=== PATIENT | female | born 1960 | race Caucasian/White ===

== ENCOUNTER → 2016-08-14 | Outpatient (CLI) | payer OTHER ==
[2016-08-14 11:17] LABS: Anion Gap 13 mmol/L; Blood Urea Nitrogen 19 mg/dL (7-17); Calcium 9.6 mg/dL (8.4-10.2); Carbon Dioxide 27 mmol/L (22-30); Chloride 102 mmol/L (98-107); Glucose 146 mg/dL (74-99); Non-African American GFR(MDRD) >60 (>60 ml/min/1.73 sqM); Potassium 4.1 mmol/L (3.5-5.1); Sodium 142 mmol/L (137-145)
== END | disposition home or self-care (01) ==
LOC: LABWHC1 08:58
PROVIDERS: ATTEND Family Medicine
DX: Z51.81 Encounter for therapeutic drug level monitoring (principal); T50.905A Adverse effect of unspecified drugs, medicaments and biological substances, initial encounter
CPT/HCPCS: 36415; 80048; 80164

== ENCOUNTER → 2016-12-27 | Outpatient (CLI) | payer OTHER ==
[2016-12-27 09:14] LABS: Basophils % (A) 1 %; CH 32.2; CHCM 32.9; Eosinophils # (A) 0.1 k/uL (0-0.7); Eosinophils % (A) 3 %; HCT 41.9 % (34.0-46.0); HGB 13.9 gm/dL (11.4-16.0); Luc # (Auto) 0.13; Luc % (Auto) 2; Lymphocytes # (A) 2.8 k/uL (1.0-4.8); Lymphocytes % (A) 54 %; MCH 32.6 pg (25.0-35.0); MCHC 33.2 g/dL (31.0-37.0); MCV 98.3 fL (80.0-100.0); Mean Platelet Volume 8.7; Monocytes # (A) 0.5 k/uL (0-1.0); Monocytes % (A) 10 %; Neutrophils # (A) 1.6 k/uL (1.3-7.7); Neutrophils % (A) 31 %; RBC 4.26 m/uL (3.80-5.40); WBC 5.2 k/uL (3.8-10.6); WBC (Perox) 5.01
[2016-12-27 11:20] LABS: ALT 57 U/L (9-52); AST 40 U/L (14-36); Alkaline Phosphatase 76 U/L (38-126); Anion Gap 10 mmol/L; Blood Urea Nitrogen 14 mg/dL (7-17); Calcium 9.4 mg/dL (8.4-10.2); Carbon Dioxide 26 mmol/L (22-30); Chloride 105 mmol/L (98-107); Glucose 89 mg/dL (74-99); Non-African American GFR(MDRD) >60 (>60 ml/min/1.73 sqM); Potassium 4.2 mmol/L (3.5-5.1); Sodium 141 mmol/L (137-145); Total Bilirubin 0.2 mg/dL (0.2-1.3)
[2016-12-27 11:32] LABS: Manual Review Performed
[2016-12-27 12:16] LABS: Hemoglobin A1C 5.8 % (4.2-6.1)
== END | disposition home or self-care (01) ==
LOC: LABWHC1 07:44
PROVIDERS: ATTEND Psychiatry & Neurology Psychiatry
DX: F25.1 Schizoaffective disorder, depressive type (principal); T50.905A Adverse effect of unspecified drugs, medicaments and biological substances, initial encounter; R63.4 Abnormal weight loss
CPT/HCPCS: 36415; 80053; 80164; 83036; 84443; 85025

== ENCOUNTER → 2017-01-29 | Outpatient (CLI) | payer OTHER | END | disposition home or self-care (01) | LOC: LABWHC1 07:20 | PROVIDERS: ATTEND Psychiatry & Neurology Neurology | DX: G40.209 Localization-related (focal) (partial) symptomatic epilepsy and epileptic syndromes with complex partial seizures, not intractable, without status epilepticus (principal) | CPT/HCPCS: 36415; 80183 ==

== ENCOUNTER → 2017-10-01 | Outpatient (CLI) | payer OTHER ==
[2017-10-01 13:10] VITALS: BMI 31.1
== END | disposition home or self-care (01) ==
LOC: MNTWWP 10:53
PROVIDERS: ATTEND Family Medicine
DX: K90.0 Celiac disease (principal)
CPT/HCPCS: 97802

== ENCOUNTER → 2017-10-23 | Outpatient (CLI) | payer OTHER ==
[2017-10-23 11:15] LABS: ALT 45 U/L (9-52); AST 35 U/L (14-36); Albumin 3.8 g/dL (3.5-5.0); Alkaline Phosphatase 65 U/L (38-126); Anion Gap 11 mmol/L; Bilirubin, Delta <0.1 mg/dL (0.0-0.2); Blood Urea Nitrogen 17 mg/dL (7-17); C Reactive Protein <5.0 mg/L (<10.0); Carbamazepine (Tegretol) <3.0 ug/mL; Carbon Dioxide 26 mmol/L (22-30); Chloride 102 mmol/L (98-107); Creatine Kinase 29 U/L (30-135); Potassium 4.2 mmol/L (3.5-5.1); Sodium 139 mmol/L (137-145); Total Bilirubin <0.1 mg/dL (0.2-1.3); Total Protein 5.9 g/dL (6.3-8.2)
[2017-10-23 11:17] LABS: Valproic Acid (Depakene) 51.4 ug/mL
[2017-10-24 05:10] LABS: Hemoglobin A1C 6.1 % (4.0-6.0)
== END | disposition home or self-care (01) ==
LOC: LABWHC1 10:21
PROVIDERS: ATTEND Psychiatry & Neurology Psychiatry
DX: R53.1 Weakness (principal); T50.905A Adverse effect of unspecified drugs, medicaments and biological substances, initial encounter
CPT/HCPCS: 36415; 80051; 80076; 80156; 80164; 82550; 82565; 83036; 84520; 85652; 86140

== ENCOUNTER → 2017-10-25 | Outpatient (CLI) | payer OTHER ==
--- NOTE | 2017-10-25 09:33 | CT ---
EXAMINATION TYPE: CT lumbar spine wo con DATE OF EXAM: 10/25/2017 7:48 AM COMPARISON: NONE HISTORY: Bilateral lower extremity weakness CT DLP: 978 mGycm Automated exposure control for dose reduction was used. TECHNIQUE: Unenhanced CT of the lumbar spine was performed. Bone and soft tissue window settings are submitted as well as coronal and sagittal reconstructions. FINDINGS: The lumbar spine maintains normal vertebral body heights and alignment. There is no evidenc e of acute fracture of the lumbar spine. Sacroiliac joints are symmetric with minimal iliac sided scl erosis bilaterally, likely degenerative. There is a focal 5 mm calcific density in the right dorsal lateral thecal sac. This could represent s equela of prior subarachnoid hemorrhage/trauma or a small calcified meningioma. Further evaluation wi th enhanced MR is recommended. This is seen on series 4 image 16. Similarly another 2 mm punctate lef t lateral calcific density at the level of L1-L2 as seen on series 4 image 20. This appears to be int radural. L1-L2: There is a small broad-based disc bulge without significant neural foraminal narrowing or spin al canal stenosis. L2-L3: There is a broad-based disc bulge that is left eccentric without focality to indicate herniati on. This results in mild left and minimal right neural foraminal narrowing. No significant spinal can al stenosis is seen. L3-L4: There is a small broad-based disc bulge resulting in mild left and minimal right neural forami nal narrowing as this is also a left eccentric. L4-L5: There is ligamentum flavum buckling and minimal facet arthropathy as well as a broad-based dis c bulge creating mild bilateral neural foraminal narrowing and appearing to create mild spinal canal stenosis although this could be better assessed with MR. L5-S1: There is a small broad-based disc bulge without spinal canal stenosis or neural foraminal narr owing. IMPRESSION: 1. Two punctate calcific densities that appear to be intradural within the upper lumbar spinal cord. These could represent sequela of prior trauma/subarachnoid hemorrhage or small calcified meningiomas. Further evaluation with enhanced MR is recommended. 2. Multilevel mild degenerative disc disease without focality on CT to suggest disc herniation. There appears to be mild spinal canal stenosis at L4-L5 and multilevel variable degree neural foraminal na rrowing as described above. 3. No evidence of vertebral body height loss or malalignment of the lumbar spine.
== END ==
LOC: RADXRMAIN 07:17
PROVIDERS: ATTEND Physical Medicine & Rehabilitation
DX: M51.36 Other intervertebral disc degeneration, lumbar region (principal); M48.061 Spinal stenosis, lumbar region without neurogenic claudication
CPT/HCPCS: 72131

== ENCOUNTER 2018-02-05 06:36 | Day surgery (SDC) | payer OTHER ==
[2018-02-03 12:50] VITALS: BMI 27.8
[~2018-02-05 06:36] MED LIST: LACTATED RINGERS 1,000 ML IV SCH
[2018-02-05 07:21] VITALS: RESP 16; TEMP 97.8
[2018-02-05 07:44] LABS: Glucose,Whole Blood 81 mg/dL (75-99)
[2018-02-05] MEDS ORDERED: PROPOFOL 10 MG/ML 20 ML VIAL IV ONE (07:46)
[2018-02-05] MEDS ORDERED: LACTATED RINGERS 950 ML IV ONE (07:49)
--- NOTE | 2018-02-05 08:00 | P.PCN ---
Date of Procedure: 02/05/18 Procedure(s) Performed: BRIEF HISTORY: Patient is a 57-year-old, pleasant, at female, scheduled for an upper endoscopy as a part of evaluation of possible celiac disease. She was having diarrhea and recently had celiac serology done which was reported as positive. She has been on a gluten-free diet for the last 4 weeks. PROCEDURE PERFORMED: Esophagogastroduodenoscopy with biopsy PREOPERATIVE DIAGNOSIS: Positive serology for celiac disease. IV sedation per anesthesia. PROCEDURE: After informed consent was obtained, the patient was brought into the endoscopy unit. IV sedation was administered by Anesthesia under continuous monitoring. Initially the Olympus GIF-140 video endoscope was inserted into the mouth. Esophagus intubated without any difficulty. It was gradually advanced into the stomach and duodenum and carefully examined. The bulb and the second part of the duodenum appeared normal. Antral biopsies were done from the duodenum to rule out celiac disease. The scope at this time was withdrawn to the stomach, adequately insufflated with air, and upon careful examination, mucosa of the antrum had nodular gastritis and biopsies were done from this area. The, body, cardia and the fundus appeared normal. The scope was then withdrawn into the esophagus. Small sliding Hiatal hernia noted. The GE junction was located at 33 cm from the incisors. At 30 cm from the incisors there were 2 superficial ulcerations measuring 1 cm in size on opposite lea suspicious for pill-induced esophagitis. Rest of the esophagus appeared normal and the patient tolerated the procedure well. IMPRESSION: 1. Normal-appearing duodenum status post multiple biopsies to rule out celiac disease. 2. Nodular gastritis. 3. 2 superficial ulcerations in the distal esophagus suspicious for pill- induced esophagitis 4. Small hiatal hernia. RECOMMENDATIONS: The findings of this examination were discussed with the patient as well as a family. She was advised to follow with the biopsy results and continue on Prilosec 20 mg twice daily and follow antireflux measures. She will continue on a strict gluten-free diet. She'll be seen in office in 3-4 weeks.
[2018-02-05 08:38] VITALS: BP 167/84; PULSE 76
== END 2018-02-05 08:58 | disposition home or self-care (01) ==
LOC: ORWHC2ENDO 06:36
PROVIDERS: ATTEND Internal Medicine Gastroenterology
DX: K29.50 Unspecified chronic gastritis without bleeding (principal); K22.10 Ulcer of esophagus without bleeding; K44.9 Diaphragmatic hernia without obstruction or gangrene; R76.8 Other specified abnormal immunological findings in serum; R19.7 Diarrhea, unspecified; E11.9 Type 2 diabetes mellitus without complications; E07.9 Disorder of thyroid, unspecified; F03.90 Unspecified dementia, unspecified severity, without behavioral disturbance, psychotic disturbance, mood disturbance, and anxiety; H91.90 Unspecified hearing loss, unspecified ear; J44.9 Chronic obstructive pulmonary disease, unspecified; R56.9 Unspecified convulsions; Z79.899 Other long term (current) drug therapy; Z79.84 Long term (current) use of oral hypoglycemic drugs; Z79.1 Long term (current) use of non-steroidal anti-inflammatories (NSAID); Z79.890 Hormone replacement therapy; Z88.1 Allergy status to other antibiotic agents; Z88.0 Allergy status to penicillin; Z87.891 Personal history of nicotine dependence
CPT/HCPCS: 88305; 88312; 43239; J2704

== ENCOUNTER → 2018-03-28 | Outpatient (CLI) | payer OTHER ==
--- NOTE | 2018-03-28 15:58 | US ---
EXAMINATION TYPE: US kidneys/renal and bladder DATE OF EXAM: 03/28/2018 COMPARISON: 11/17/2015 CLINICAL HISTORY: R80.9 Proteinuria. EXAM MEASUREMENTS: Right Kidney: 10.1 x 4.9 x 4.6 cm Left Kidney: 11.3 x 4.7 x 5.7 cm Right Kidney: No hydronephrosis or masses seen, inferior pole obscured by bowel gas Left Kidney: No hydronephrosis or masses seen . Column of Lázaro is likely present. Bladder: not well visualized, not fully distended, patient felt full IMPRESSION: 1. Normal renal ultrasound
== END | disposition home or self-care (01) ==
LOC: RADUSWWP 15:01
PROVIDERS: ATTEND Family Medicine
DX: R80.9 Proteinuria, unspecified (principal)
CPT/HCPCS: 76770

== ENCOUNTER → 2018-05-13 | Outpatient (CLI) | payer OTHER ==
--- NOTE | 2018-05-14 11:08 | MM ---
Reason for exam: screening (asymptomatic). Last mammogram was performed 1 year ago. History: Patient is postmenopausal. Family history of breast cancer in maternal grandmother. Physical Findings: A clinical breast exam by your physician is recommended on an annual basis and results should be correlated with mammographic findings. MG Screening Mammo w CAD Bilateral CC and MLO view(s) were taken. Prior study comparison: May 09, 2017, bilateral MG screening mammo w CAD. March 14, 2016, bilateral MG screening mammo w CAD. There are scattered fibroglandular densities. Numerous benign bilateral oil cysts. New nodularity left breast and new regional calcifications as well. ASSESSMENT: Incomplete: need additional imaging evaluation, BI-RAD 0 RECOMMENDATION: Special view mammogram of the left breast. If lesion persists on supplemental views, image directed ultrasound is recommended. [facility] will attempt to contact patient to return for supplemental views and ultrasound if indicated.
== END | disposition home or self-care (01) ==
LOC: RADMAMWWP 06:56 → EEVIPCON 07:00
PROVIDERS: ATTEND Family Medicine
DX: Z12.31 Encounter for screening mammogram for malignant neoplasm of breast (principal)
CPT/HCPCS: 77067

== ENCOUNTER → 2018-06-11 | Outpatient (CLI) | payer OTHER ==
--- NOTE | 2018-06-12 10:47 | MM ---
Reason for exam: additional evaluation requested from abnormal screening. Last mammogram was performed 1 month ago. History: Patient is postmenopausal. Family history of breast cancer in maternal grandmother. Indicated problem(s): other indicated problem in the left breast. Physical Findings: Patient refused breast exam MG Work Up Mamm w CAD LT LM and LM with magnification view(s) were taken of the left breast. Prior study comparison: May 13, 2018, bilateral MG screening mammo w CAD. May 09, 2017, bilateral MG screening mammo w CAD. The breast tissue is heterogeneously dense. This may lower the sensitivity of mammography. There are benign-appearing diffuse round coarse sphraical left breast calcifications. No suspicious clusters of calcifications. ASSESSMENT: Incomplete: need additional imaging evaluation, BI-RAD 0 RECOMMENDATION: Ultrasound of the left breast.
--- NOTE | 2018-06-12 10:58 | USB ---
History: Patient is postmenopausal. Family history of breast cancer in maternal grandmother. US Breast Workup LT Patient scanned in her wheelchair. Left complete breast ultrasound includes all four quadrants, the retroareolar region and axilla. Finding demonstrates a 4 x 4 x 4 mm oval mixed hypoechoic lesion at 3o'clock and a 4 x 5 x 5 mm oval solid hypoechoic lesion at 3 o'clock both correlate with the mammographic. findings. These results were verbally communicated with the patient and result sheet given to the patient on 06/11/18. ASSESSMENT: Suspicious, BI-RAD 4 RECOMMENDATION: Surgical consultation and ultrasound core biopsy of the left breast. Ultrasound core of 2 sites. Pt has an appointment with Dr. Hurtado on 06/12/18 at 0830 to discuss plan of care.
== END | disposition home or self-care (01) ==
LOC: RADMAMWWP 08:43
PROVIDERS: ATTEND Family Medicine
DX: R92.8 Other abnormal and inconclusive findings on diagnostic imaging of breast (principal)
CPT/HCPCS: 77065

== ENCOUNTER → 2018-06-26 | Day surgery (SDC) | payer OTHER ==
[2018-06-26 11:59] VITALS: TEMP 97.6; BMI 22.8
[2018-06-26 14:11] VITALS: BP 134/69; PULSE 79
--- NOTE | 2018-06-26 16:13 | USB ---
EXAMINATION TYPE: US biopsy breast VAD LT DATE OF EXAM: 06/26/2018 CLINICAL HISTORY: N63.20 lump in left breast. TECHNIQUE: Ultrasound guided core biopsy of left breast. COMPARISON: NONE FINDINGS: The procedure of ultrasound guided core biopsy was explained to the patient's guardian, her brother. An informed consent was then obtained. All questions were answered. Timeout was performed. The patient was placed in supine positioning for imaging and for the procedure. The overlying skin w as prepped and draped in usual sterile fashion. 1% Lidocaine buffered with bicarbonate was used as a nesthetic into the skin and subcutaneous tissue up to area of concern in the left breast. A small sk in sara was made with surgical scalpel. Under ultrasound guidance, a 12-gauge vacuum assisted biopsy gun device was used to obtain 6 core miki ples. Following this, a biopsy clip was left in lesion. Utilizing a separate set up and utilizing the same entrance site the second area was anesthetized wit h 1% lidocaine with sodium bicarbonate. Under ultrasound guidance multiple core samples were obtained . Following this a biopsy clip was placed at the biopsy site. The patient tolerated the procedure well without any immediate complication. Post procedure mammogram was ordered by the physician in performed. 2 clips are present within the left breast. Discharge instructions and been discussed with the patient guarding. Patient was released in stable c ondition having tolerated procedure well IMPRESSION: 1. Successful ultrasound-guided core biopsy 2 locations left breast. Recommendations: 1. Recommendations are pending pathology results.
== END | disposition home or self-care (01) ==
LOC: RADUSWWP 11:29
PROVIDERS: ATTEND Family Medicine
DX: N63.20 Unspecified lump in the left breast, unspecified quadrant (principal)
CPT/HCPCS: 88305; 77065; 19083; 19084; A4648

== ENCOUNTER → 2018-12-18 | Outpatient (CLI) | payer OTHER ==
[2018-12-18 12:33] LABS: ALT 105 U/L (9-52); AST 95 U/L (14-36); African American GFR (CKD) >90 (>60 ml/min/1.73 sqM); Albumin/Globulin Ratio 1.5; Alkaline Phosphatase 56 U/L (38-126); Anion Gap 8 mmol/L; Blood Urea Nitrogen 17 mg/dL (7-17); Calcium 9.6 mg/dL (8.4-10.2); Carbon Dioxide 24 mmol/L (22-30); Chloride 108 mmol/L (98-107); Cholesterol 152 mg/dL (<200); Creatine Kinase 61 U/L (30-135); Globulin 2.6 g/dL; Glucose 76 mg/dL (74-99); HDL Cholesterol 56 mg/dL (40-60); LDL Cholesterol,Calculated 75 mg/dL (0-99); Magnesium 1.7 mg/dL (1.6-2.3); Phosphorus 4.2 mg/dL (2.5-4.5); Sodium 140 mmol/L (137-145); Total Bilirubin 1.3 mg/dL (0.2-1.3); Total Protein 6.6 g/dL (6.3-8.2); Triglycerides 105 mg/dL (<150); Uric Acid 2.8 mg/dL (3.7-7.4)
[2018-12-18 12:54] LABS: Basophils % (A) 0 %; Eosinophils # (A) 0.1 k/uL (0-0.7); Eosinophils % (A) 1 %; HCT 44.3 % (34.0-46.0); HGB 14.7 gm/dL (11.4-16.0); Lymphocytes # (A) 3.2 k/uL (1.0-4.8); Lymphocytes % (A) 56 %; MCH 33.6 pg (25.0-35.0); MCHC 33.2 g/dL (31.0-37.0); MCV 100.9 fL (80.0-100.0); Mean Platelet Volume 9.9; Monocytes # (A) 0.5 k/uL (0-1.0); Monocytes % (A) 9 %; Neutrophils # (A) 1.8 k/uL (1.3-7.7); Neutrophils % (A) 33 %; Platelet Count 135 k/uL (150-450); RBC 4.39 m/uL (3.80-5.40); RDW 13.2 % (11.5-15.5); WBC 5.7 k/uL (3.8-10.6)
[2018-12-18 18:25] LABS: Iron Saturation 57.03 (12.00-45.00)
[2018-12-18 18:46] LABS: Vitamin D 25 Hydroxy 40.7 ng/mL (30.0-100.0)
== END | disposition home or self-care (01) ==
LOC: LABWHC1 10:55
PROVIDERS: ATTEND Psychiatry & Neurology Psychiatry
DX: D64.9 Anemia, unspecified (principal); M10.9 Gout, unspecified; E55.9 Vitamin D deficiency, unspecified; R80.9 Proteinuria, unspecified; Z79.899 Other long term (current) drug therapy; E78.5 Hyperlipidemia, unspecified; F20.9 Schizophrenia, unspecified
CPT/HCPCS: 36415; 80053; 80061; 80164; 80183; 82306; 82550; 82728; 83540; 83550; 83735; 83970; 84100; 84550; 85025

== ENCOUNTER → 2018-12-24 | Outpatient (CLI) | payer OTHER ==
[2018-12-24 20:35] LABS: African American GFR (CKD) 125.4 (60.0-200.0); Albumin 3.4 g/dL (3.80-4.90); Anion Gap 10.4 mmol/L (4.00-12.00); Calcium 8.8 mg/dL (8.7-10.3); Carbon Dioxide 24.6 mmol/L (21.6-31.8); Globulin 1.7 g/dL (1.6-3.3); Non-African American GFR(CKD) 108.2 (60.0-200.0); Potassium 3.9 mmol/L (3.5-5.5); Total Bilirubin 0.2 mg/dL (0.3-1.2); Total Protein 5.1 g/dL (6.2-8.2)
== END | disposition home or self-care (01) ==
LOC: LABWHC1 14:03
PROVIDERS: ATTEND Family Medicine
DX: E87.6 Hypokalemia (principal)
CPT/HCPCS: 36415; 80053

== ENCOUNTER → 2019-01-15 | Outpatient (CLI) | payer OTHER ==
--- NOTE | 2019-01-15 10:28 | USB ---
Reason for exam: follow-up at short interval from prior study. History: Patient is postmenopausal. Family history of breast cancer in maternal grandmother. Benign US biopsy breast VAD LT of the left breast, June 26, 2018. Benign US biopsy breast add'l VAD LT of the left breast, June 26, 2018. Physical Findings: Nurse did not find any significant physical abnormalities on exam. US Breast Limited LT Left limited breast ultrasound including focal area of concern, retroareolar and axilla demonstrates a 0.5 x 0.5 x 0.4cm solid lesion at 3 o'clock previously biopsied and a 0.4 x 0.3 x 0.5cm solid lesion at 3 o'clock previously biopsied. These results were verbally communicated with the patient and result sheet given to the patient on 01/15/19. ASSESSMENT: Probably benign, BI-RAD 3 RECOMMENDATION: Follow-up diagnostic mammogram of both breasts in 6 months. Ultrasound of the left breast in 6 months. Back on schedule. Manage patient on a clinical basis.
== END | disposition home or self-care (01) ==
LOC: RADUSWWP 09:38
PROVIDERS: ATTEND Family Medicine
DX: R92.8 Other abnormal and inconclusive findings on diagnostic imaging of breast (principal)

== ENCOUNTER → 2019-03-26 | Outpatient (CLI) | payer OTHER ==
[2019-03-26 11:34] LABS: Basophils # (A) 0.1 k/uL (0-0.2); Basophils % (A) 1 %; Eosinophils # (A) 0.1 k/uL (0-0.7); Eosinophils % (A) 1 %; HGB 15.6 gm/dL (11.4-16.0); Lymphocytes # (A) 1.8 k/uL (1.0-4.8); Lymphocytes % (A) 38 %; MCH 33.4 pg (25.0-35.0); MCHC 32.4 g/dL (31.0-37.0); MCV 103.2 fL (80.0-100.0); Macrocytosis Slight; Monocytes # (A) 0.6 k/uL (0-1.0); Monocytes % (A) 12 %; Neutrophils # (A) 2.1 k/uL (1.3-7.7); Neutrophils % (A) 45 %; Platelet Count 281 k/uL (150-450); RBC 4.66 m/uL (3.80-5.40); RDW 12.3 % (11.5-15.5); WBC 4.7 k/uL (3.8-10.6)
[2019-03-26 18:06] LABS: African American GFR (CKD) 134.9 (60.0-200.0); Albumin 3.9 g/dL (3.80-4.90); Albumin/Globulin Ratio 1.95 (1.60-3.17); Anion Gap 12.2 mmol/L (4.00-12.00); Calcium 8.4 mg/dL (8.7-10.3); Carbon Dioxide 25.8 mmol/L (21.6-31.8); Chol/HDL Ratio 4.85; Non-African American GFR(CKD) 116.4 (60.0-200.0); Potassium 4.6 mmol/L (3.5-5.5); Total Bilirubin 0.2 mg/dL (0.2-1.2); Total Protein 5.9 g/dL (6.2-8.2)
== END | disposition home or self-care (01) ==
LOC: LABWHC1 09:41
PROVIDERS: ATTEND Internal Medicine Gastroenterology
DX: E78.5 Hyperlipidemia, unspecified (principal); R94.5 Abnormal results of liver function studies; R74.8 Abnormal levels of other serum enzymes
CPT/HCPCS: 36415; 80053; 80061; 82550; 85025

== ENCOUNTER → 2019-06-23 | Outpatient (CLI) | payer OTHER ==
[2019-06-23 07:40] LABS: Basophils % (A) 1 %; Eosinophils # (A) 0.1 k/uL (0-0.7); Eosinophils % (A) 2 %; HCT 41.5 % (34.0-46.0); HGB 13.2 gm/dL (11.4-16.0); Lymphocytes # (A) 1.8 k/uL (1.0-4.8); Lymphocytes % (A) 44 %; MCH 32.6 pg (25.0-35.0); MCHC 31.7 g/dL (31.0-37.0); MCV 102.9 fL (80.0-100.0); Macrocytosis Slight; Mean Platelet Volume 8.2; Monocytes # (A) 0.3 k/uL (0-1.0); Monocytes % (A) 7 %; Neutrophils # (A) 1.8 k/uL (1.3-7.7); Neutrophils % (A) 45 %; Platelet Count 197 k/uL (150-450); RBC 4.04 m/uL (3.80-5.40); RDW 12.9 % (11.5-15.5)
[2019-06-23 07:42] LABS: Appearance,Urine Clear (Clear); Bilirubin,Urine Negative (Negative); Blood,Urine Negative (Negative); Color,Urine Yellow; Glucose,Urine (UA) Negative (Negative); Ketones,Urine Negative (Negative); Leukocyte Esterase,Urine Trace (Negative); Mucus,Urine Rare /hpf; Nitrite,Urine Negative (Negative); Protein,Urine Negative (Negative); RBC,Urine <1 /hpf (0-5); Specific Gravity,Urine 1.015 (1.001-1.035); Squamous Epithelial Cell,Urine 1 /hpf (0-4); Urobilinogen,Urine <2.0 mg/dL (<2.0); WBC,Urine 2 /hpf (0-5)
[2019-06-23 18:07] LABS: Urine Creatinine 44.9 mg/dL
[2019-06-23 18:18] LABS: % Iron Saturation 41.26 (12.00-45.00); African American GFR (CKD) 134.9 (60.0-200.0); Albumin 3.5 g/dL (3.80-4.90); Albumin/Globulin Ratio 2.5 (1.60-3.17); Anion Gap 8.6 mmol/L (4.00-12.00); Carbon Dioxide 29.4 mmol/L (21.6-31.8); Globulin 1.4 g/dL (1.6-3.3); Magnesium 1.5 mg/dL (1.5-2.4); Non-African American GFR(CKD) 116.4 (60.0-200.0); Phosphorus 4.1 mg/dL (2.4-5.1); Potassium 4.2 mmol/L (3.5-5.5); Total Bilirubin 0.1 mg/dL (0.3-1.2); Total Protein 4.9 g/dL (6.2-8.2)
[2019-06-23 18:21] LABS: Uric Acid 2.7 mg/dL (2.9-7.7)
[2019-06-23 18:30] LABS: Ferritin 47.3 ng/mL (10.0-291.0)
== END | disposition home or self-care (01) ==
LOC: LABWHC1 06:40
PROVIDERS: ATTEND Internal Medicine
DX: N25.81 Secondary hyperparathyroidism of renal origin (principal); D64.9 Anemia, unspecified; E55.9 Vitamin D deficiency, unspecified; M10.9 Gout, unspecified; R80.9 Proteinuria, unspecified
CPT/HCPCS: 36415; 80053; 81001; 82043; 82306; 82570; 82728; 83540; 83550; 83735; 83970; 84100; 84550; 85025

== ENCOUNTER → 2019-08-05 | Outpatient (CLI) | payer OTHER ==
--- NOTE | 2019-08-05 10:06 | MM ---
Reason for exam: additional evaluation requested from prior study. Last mammogram was performed 1 year and 1 month ago. History: Patient is postmenopausal. Family history of breast cancer in maternal grandmother at age 62. Benign US biopsy breast VAD LT of the left breast, June 26, 2018. Benign US biopsy breast add'l VAD LT of the left breast, June 26, 2018. Physical Findings: Nurse did not find any significant physical abnormalities on exam. MG Diagnostic Mammo w CAD EVA Bilateral CC and MLO view(s) were taken. Prior study comparison: June 26, 2018, left breast MG diagnostic mammo LT wo CAD. June 11, 2018, left breast MG work up mamm w CAD LT. The breast tissue is heterogeneously dense. This may lower the sensitivity of mammography. Benign appearing bilateral calcifications and left biopsy marker. Left cardiac device makes visualization of the entire left axilla difficult. These results were verbally communicated with the patient and result sheet given to the patient on 08/05/19. ASSESSMENT: Benign, BI-RAD 2 RECOMMENDATION: Routine screening mammogram of both breasts in 1 year.
== END | disposition home or self-care (01) ==
LOC: RADMAMWWP 08:48
PROVIDERS: ATTEND Family Medicine
DX: R92.8 Other abnormal and inconclusive findings on diagnostic imaging of breast (principal)
CPT/HCPCS: 77066

== ENCOUNTER 2020-07-13 08:02 | Day surgery (SDC) | payer OTHER ==
[~2020-07-13 08:02] MED LIST changes: +LIDOCAINE 1% (10MG/ML) FOR IV START INTRADERMA PRN
[2020-07-13 08:38] LABS: Glucose,Whole Blood 95 mg/dL (75-99)
[2020-07-13 08:59] VITALS: TEMP 98.8
[2020-07-13] MEDS ORDERED: PROPOFOL 10 MG/ML 20 ML VIAL IV ONE (09:15)
--- NOTE | 2020-07-13 09:28 | P.PCN ---
Date of Procedure: 07/13/20 Procedure(s) Performed: BRIEF HISTORY: Patient is a 59-year-old pleasant white female scheduled for an elective colonoscopy as a part of evaluation of prior history of colon polyps. Last colonoscopy was 5 years ago. PROCEDURE PERFORMED: Colonoscopy with snare polypectomy. PREOPERATIVE DIAGNOSIS: History of colon polyps. IV sedation per Anesthesia. PROCEDURE: After informed consent was obtained, the patient, was brought into the endoscopy unit. IV sedation was administered by Anesthesia under continuous monitoring. Digital rectal examination was normal. Initially the Olympus CF-160 flexible video colonoscope was then inserted in the rectum, gradually advanced into the cecum without any difficulty. Careful examination was performed as the scope was gradually being withdrawn. Ileocecal valve and the appendiceal orifice were visualized and appeared normal. Prep was excellent. Mucosa of the cecum, appeared normal. In the ascending colon there was a 5 mm sessile polyp removed by snare polypectomy. Rest of the ascending colon, transverse colon, descending colon, sigmoid colon, and rectum appeared normal. Retroflexion was performed in the rectum and no lesions were seen. The patient tolerated the procedure well. IMPRESSION: 5 mm sessile ascending colon polyp serous posterior polypectomy Rest of the colon appeared normal. RECOMMENDATIONS: Findings of this examination were discussed with the patient as well as a family. She was advised to follow with the biopsy results. If the biopsy shows an adenoma she can have a repeat colonoscopy in 5 years.
[2020-07-13 09:59] VITALS: BP 160/79; PULSE 80; RESP 18
== END 2020-07-13 10:15 | disposition home or self-care (01) ==
LOC: ORWHC2ENDO 08:02
PROVIDERS: ATTEND Internal Medicine Gastroenterology
DX: Z12.11 Encounter for screening for malignant neoplasm of colon (principal); D12.2 Benign neoplasm of ascending colon; Z86.010 Personal history of colon polyps; I10 Essential (primary) hypertension; E78.5 Hyperlipidemia, unspecified; J44.9 Chronic obstructive pulmonary disease, unspecified; M10.9 Gout, unspecified; E07.9 Disorder of thyroid, unspecified; G20 Parkinson's disease; M06.9 Rheumatoid arthritis, unspecified; F03.90 Unspecified dementia, unspecified severity, without behavioral disturbance, psychotic disturbance, mood disturbance, and anxiety; Z88.0 Allergy status to penicillin; Z88.1 Allergy status to other antibiotic agents; Z88.8 Allergy status to other drugs, medicaments and biological substances; Z79.890 Hormone replacement therapy; Z79.899 Other long term (current) drug therapy; Z90.49 Acquired absence of other specified parts of digestive tract; Z98.890 Other specified postprocedural states
CPT/HCPCS: 88305; 45385; J2704

== ENCOUNTER → 2020-09-13 | Outpatient (CLI) | payer OTHER ==
--- NOTE | 2020-09-14 09:41 | MM ---
Reason for exam: screening (asymptomatic). Last mammogram was performed 1 year and 1 month ago. History: Patient is postmenopausal and history of other cancer. Family history of breast cancer in maternal grandmother at age 62. Benign US biopsy breast VAD LT of the left breast, June 26, 2018. Benign US biopsy breast add'l VAD LT of the left breast, June 26, 2018. Physical Findings: A clinical breast exam by your physician is recommended on an annual basis and results should be correlated with mammographic findings. MG Screening Mammo w CAD Bilateral CC and MLO view(s) were taken. Prior study comparison: August 05, 2019, bilateral MG diagnostic mammo w CAD EVA. June 26, 2018, left breast MG diagnostic mammo LT wo CAD. The breast tissue is heterogeneously dense. This may lower the sensitivity of mammography. There are benign appearing round vascular calcifications bilaterally. Previous mammotome biopsy in the left breast x 2. There is no discrete abnormality. ASSESSMENT: Benign, BI-RAD 2 RECOMMENDATION: Routine screening mammogram of both breasts in 1 year.
== END | disposition home or self-care (01) ==
LOC: RADMAMWWP 07:15
PROVIDERS: ATTEND Family Medicine
DX: Z12.31 Encounter for screening mammogram for malignant neoplasm of breast (principal)
CPT/HCPCS: 77067

== ENCOUNTER 2020-10-06 09:48 | Observation (INO) | payer OTHER ==
--- NOTE | 2020-10-06 10:25 | ED ---
Upper Extremity HPI - General Source: patient Mode of arrival: ambulatory Limitations: no limitations <Shila Caba - Last Filed: 10/06/20 13:29> <Purnima Lin - Last Filed: 10/15/20 16:56> - General Chief Complaint: Extremity Injury, Upper Stated Complaint: Broken L Arm Time Seen by Provider: 10/06/20 10:05 - History of Present Illness Initial Comments: Patient is a 59-year-old female with history of Parkinson's, hard of hearing, presenting to the emergency department after a fall yesterday. is here with her and providing history. states that she was using her walker, transitioning from the dining room to the living room which turned into carpet when she fell forward, landing mostly on her left upper arm. She did not hit her head. The states she seemed to be doing pretty well so she did not get evaluated yesterday. Today he noticed that she wasn't using her left arm and went and got x-rays, x-ray showed a fractured humerus and they recommended her coming into the ER for further evaluation. She denies pain anywhere else. She denies hitting her head. She did take some Tylenol this morning, her pain seems to be controlled. There are no further complaints at this time. (Shila Caba) - Related Data Home Medications Medication Instructions Recorded Confirmed Baclofen 10 mg PO AC-BID 08/12/15 10/06/20 Carbidopa-Levodopa 25-100 mg 0.5 tab PO DAILY 08/12/15 10/06/20 [Sinemet 25-100 mg] Erythromycin Ophth Oint [Romycin 1 applic BOTH EYES Q3H 08/12/15 10/06/20 Ophth Oint] Fluticasone Nasal [place] [Flonase 1 spray EA NOSTRIL BID 08/12/15 10/06/20 Nasal [place]] Folic Acid 1 mg PO DAILY 08/12/15 10/06/20 Ibuprofen [Motrin] 800 mg PO TID PRN 08/12/15 10/06/20 Levothyroxine Sodium [Levoxyl] 112 mcg PO DAILY 08/12/15 10/06/20 Loratadine [Claritin] 10 mg PO DAILY 08/12/15 10/06/20 Meclizine [Antivert] 12.5 mg PO BID 08/12/15 10/06/20 OXcarbazepine [Trileptal] 300 mg PO BID 08/12/15 10/06/20 Omeprazole [PriLOSEC] 20 mg PO BID 08/12/15 10/06/20 amantadine HCL [Symmetrel] 100 mg PO BID 08/12/15 10/06/20 traZODone HCL [Desyrel] 200 mg PO HS 08/12/15 10/06/20 Dorzolamide HCl [Trusopt 2%] 1 drop BOTH EYES BID 02/03/18 10/06/20 Calcium Carbonate/Vitamin D3 2 tab PO DAILY 06/18/18 10/06/20 [Calcium 600-Vit D3 400 Caplet] Latanoprost/Pf [Latanoprost 0.005% 1 drop BOTH EYES HS 06/18/18 10/06/20 Eye Drop] Mirabegron [Myrbetriq] 50 mg PO DAILY 06/18/18 10/06/20 Acetaminophen [Tylenol] 500 mg PO BID PRN 07/11/20 10/06/20 Donepezil [Aricept] 10 mg PO HS 07/11/20 10/06/20 LORazepam [Ativan] 0.5 mg PO BID 07/11/20 10/06/20 Magnesium Oxide [Mag-Oxide] 400 mg PO BID 07/11/20 10/06/20 Vortioxetine Hydrobromide 20 mg PO DAILY 07/11/20 10/06/20 [Trintellix] busPIRone HCL 15 mg PO BID@0900,1400 07/11/20 10/06/20 Albuterol Sulfate [Proair Hfa] 2 puff INHALATION RT-Q4H PRN 10/06/20 10/06/20 Brimonidine Tartrate [Alphagan P 1 drop BOTH EYES BID 10/06/20 10/06/20 0.2% Ophth Soln] Divalproex ER [Depakote ER] 1,500 mg PO HS 10/06/20 10/06/20 Docusate [Colace] 100 mg PO BID PRN 10/06/20 10/06/20 Loperamide [Imodium] 2 mg PO DAILY PRN 10/06/20 10/06/20 Lurasidone [Latuda] 80 mg PO PC-SUPPER 10/06/20 10/06/20 OXcarbazepine [Trileptal] 150 mg PO BID 10/06/20 10/06/20 Refresh Liquigel 1% Liquid Gel 1 drop BOTH EYES Q3H 10/06/20 10/06/20 Drops Tofacitinib Citrate [Xeljanz Xr] 11 mg PO DAILY 10/06/20 10/06/20 busPIRone HCL 30 mg PO HS 10/06/20 10/06/20 Previous Rx's Medication Instructions Recorded Sulfamethox-Tmp 800-160Mg [Bactrim 1 tab PO Q12HR 3 Days #6 tab 10/07/20 DS 800-160 mg] Allergies Allergy/AdvReac Type Severity Reaction Status Date / Time amoxicillin trihydrate Allergy Severe Anaphylaxis Verified 10/06/20 12:35 [From Augmentin] erythromycin base Allergy Severe Anaphylaxis Verified 10/06/20 12:35 Macrolide Antibiotics Allergy Severe Anaphylaxis Verified 10/06/20 12:35 neomycin Allergy Severe Anaphylaxis Verified 10/06/20 12:35 potassium clavulanate Allergy Severe Anaphylaxis Verified 10/06/20 12:35 [From Augmentin] prednisone Allergy INCREASED Verified 10/06/20 12:35 EYE PRESSURE Review of Systems ROS Other: All systems not noted in ROS Statement are negative. <Shila Caba - Last Filed: 10/06/20 13:29> ROS Other: All systems not noted in ROS Statement are negative. <Purnima Lin - Last Filed: 10/15/20 16:56> ROS Statement: Those systems with pertinent positive or pertinent negative responses have been documented in the HPI. Past Medical History Past Medical History: COPD, Dementia, Eye Disorder, GERD/Reflux, Hearing Disorder / Deafness, Hyperlipidemia, Rheumatoid Arthritis (RA), Seizure Disor tiffany, Thyroid Disorder Additional Past Medical History / Comment(s): O2 4L @ NIGHT. PARKISON/DEMENTIA. 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 VERY [place]. WILL FOLLOW SIMPLE INSTRUCTIONS. History of Any Multi-Drug Resistant Organisms: None Reported Past Surgical History: Cholecystectomy, Orthopedic Surgery Additional Past Surgical History / Comment(s): leonor. Ankle FX repair; Benign brain Blastoma; Deep Brain Stimulator implant, leg fx with repair/kenny placement 2012 Past Anesthesia/Blood Transfusion Reactions: No Reported Reaction, Motion Sickness Past Psychological History: Bipolar, Depression, Schizophrenia Smoking Status: Former smoker Past Alcohol Use History: None Reported Past Drug Use History: None Reported - Past Family History Mother Family Medical History: No Reported History, Coronary Artery Disease (CAD) <Shila Caba - Last Filed: 10/06/20 13:29> General Exam Limitations: no limitations <Shila Caba - Last Filed: 10/06/20 13:29> - General Exam Comments Initial Comments: GENERAL: Patient is well-developed and well-nourished. Patient is nontoxic and in no acute distress, [place]. HEAD: Atraumatic, normocephalic. No hematomas, no signs of basal skull fracture. EYES: Pupils equal round and reactive to light, extraocular movements intact, sclera anicteric, conjunctiva are normal. Eyelids were unremarkable. ENT: TMs normal, nares patent, oropharynx clear without exudates. Moist mucous membranes. NECK: Normal range of motion, supple without lymphadenopathy or JVD. No midline tenderness. LUNGS: Unlabored respirations. Breath sounds clear to auscultation bilaterally and equal. No wheezes rales or rhonchi. HEART: Regular rate and rhythm without murmurs, rubs or gallops. ABDOMEN: Soft, nontender, normoactive bowel sounds. No guarding, no rebound. No masses appreciated. : Deferred MUSCULOSKELETAL: Patient has a bruising and swelling noted to the mid to upper left humerus. She is guarding the arm, no active range of motion. Neurovascular intact. No pain of the left forearm. Rest of extremities with adequate strength and normal range of motion, no pitting or edema. No clubbing or cyanosis. NEUROLOGICAL: Patient is alert and oriented x 3. Motor and sensory are also intact. Cranial nerves II through XII grossly intact. Symmetrical smile. History of Parkinson PSYCH: Normal mood, normal affect. SKIN: Warm, Dry, normal turgor, no rashes or lesions noted. (Shila Caba) Course Vital Signs 10/06/20 09:49 Temperature 98.5 F Pulse Rate 90 Respiratory 18 Rate Blood Pressure 154/71 O2 Sat by Pulse 98 Oximetry Medical Decision Making - Lab Data Result diagrams: 10/06/20 11:17 10/06/20 11:17 <Shila Caba - Last Filed: 10/06/20 13:29> - Lab Data Result diagrams: 10/07/20 11:24 10/07/20 11:24 <Purnima Lin - Last Filed: 10/15/20 16:56> - Medical Decision Making Patient is a 59-year-old female with history of Parkinson's, very [place], presenting after a fall yesterday. She was sent in after having outpatient x- rays today. X-rays show a left humeral head fracture, almost 100% displacement of the head. I did speak with Hailey Varela who agrees to admission secondary to patient using a walker to get around, and is not safe going home at this time. Possible placement. Brother/guardian is in agreement with this plan of care. I did order preop labs, chest x-ray which are pending. We also ordered a CT of the left shoulder, Which reads as impacted and comminuted fracture involving the left humeral neck extending into the greater tuberosity. Significant displacement of the fracture components.we did put medicine on as consult for medical management. Brother stated that patient is dairy and gluten-free, also requires thickeners for her meals. Case discussed with Dr. Lin. (Shila Caba) I was available for consultation in the emergency department. The history and physical exam were done by the midlevel provider. I was consulted for this patients care. I reviewed the case with the midlevel provider and based on their presentation of the patient, I agree with the assessment, medical decision making and plan of care as documented. Chart was dictated using Plan[employer] dictation software. Attempts were made to correct any dictation errors however some typographical errors may persist. Patient was seen during a national state of emergency due to the Covid-19 pandemic. (Purnima Lin) - Lab Data Lab Results 10/06/20 10/06/20 10/06/20 Range/Units 11:17 11:17 11:17 WBC 7.5 (3.8-10.6) k/uL RBC 3.51 L (3.80-5.40) m/uL Hgb 11.6 (11.4-16.0) gm/dL Hct 35.6 (34.0-46.0) % MCV 101.7 H (80.0-100.0) fL MCH 33.2 (25.0-35.0) pg MCHC 32.7 (31.0-37.0) g/dL RDW 12.8 (11.5-15.5) % Plt Count 192 (150-450) k/uL MPV 8.3 Neutrophils % 75 % Lymphocytes % 15 % Monocytes % 9 % Eosinophils % 0 % Basophils % 0 % Neutrophils # 5.6 (1.3-7.7) k/uL Lymphocytes # 1.1 (1.0-4.8) k/uL Monocytes # 0.7 (0-1.0) k/uL Eosinophils # 0.0 (0-0.7) k/uL Basophils # 0.0 (0-0.2) k/uL Macrocytosis Slight PT 10.0 (9.0-12.0) sec INR 0.9 (<1.2) APTT 20.7 L (22.0-30.0) sec Sodium 136 L (137-145) mmol/L Potassium 3.3 L (3.5-5.1) mmol/L Chloride 105 (98-107) mmol/L Carbon Dioxide 27 (22-30) mmol/L Anion Gap 4 mmol/L BUN 18 H (7-17) mg/dL Creatinine 0.33 L (0.52-1.04) mg/dL Est GFR (CKD-EPI)AfAm >90 (>60 ml/min/1.73 sqM) Est GFR (CKD-EPI)NonAf >90 (>60 ml/min/1.73 sqM) Glucose 112 H (74-99) mg/dL Calcium 9.8 (8.4-10.2) mg/dL Total Bilirubin 0.4 (0.2-1.3) mg/dL AST 32 (14-36) U/L ALT 17 (4-34) U/L Alkaline Phosphatase 66 (38-126) U/L Total Protein 5.6 L (6.3-8.2) g/dL Albumin 3.2 L (3.5-5.0) g/dL Coronavirus (PCR) (Not Detectd) 10/06/20 Range/Units 11:45 WBC (3.8-10.6) k/uL RBC (3.80-5.40) m/uL Hgb (11.4-16.0) gm/dL Hct (34.0-46.0) % MCV (80.0-100.0) fL MCH (25.0-35.0) pg MCHC (31.0-37.0) g/dL RDW (11.5-15.5) % Plt Count (150-450) k/uL MPV Neutrophils % % Lymphocytes % % Monocytes % % Eosinophils % % Basophils % % Neutrophils # (1.3-7.7) k/uL Lymphocytes # (1.0-4.8) k/uL Monocytes # (0-1.0) k/uL Eosinophils # (0-0.7) k/uL Basophils # (0-0.2) k/uL Macrocytosis PT (9.0-12.0) sec INR (<1.2) APTT (22.0-30.0) sec Sodium (137-145) mmol/L Potassium (3.5-5.1) mmol/L Chloride (98-107) mmol/L Carbon Dioxide (22-30) mmol/L Anion Gap mmol/L BUN (7-17) mg/dL Creatinine (0.52-1.04) mg/dL Est GFR (CKD-EPI)AfAm (>60 ml/min/1.73 sqM) Est GFR (CKD-EPI)NonAf (>60 ml/min/1.73 sqM) Glucose (74-99) mg/dL Calcium (8.4-10.2) mg/dL Total Bilirubin (0.2-1.3) mg/dL AST (14-36) U/L ALT (4-34) U/L Alkaline Phosphatase (38-126) U/L Total Protein (6.3-8.2) g/dL Albumin (3.5-5.0) g/dL Coronavirus (PCR) Not Detected (Not Detectd) - EKG Data EKG Comments: normal sinus rhythm, septal infarct age undetermined, ST and T-wave abnormalities, the suboptimal EKG as patient does have history of Parkinson's and unable to hold still. No signs of an acute process at this time. Ventricular rate 89, P interval 112, QT 342. (Shila Caba) Disposition Decision Date: 10/06/20 Decision Time: 11:21 <Shila Caba - Last Filed: 10/06/20 13:29> <Purnima Lin - Last Filed: 10/15/20 16:56> Clinical Impression: Fracture of humeral head, left, closed, Fall Disposition: ADMITTED IP TO THIS HOSP Condition: Stable
[2020-10-06] MEDS ORDERED: ONDANSETRON 4 MG/2 ML VIAL IVP PRN (11:15)
[2020-10-06] MEDS ORDERED: NALOXONE 0.4 MG/ML 1 ML VIAL IV PRN (11:15)
[2020-10-06 11:31] LABS: Basophils % (A) 0 %; Eosinophils % (A) 0 %; HCT 35.6 % (34.0-46.0); HGB 11.6 gm/dL (11.4-16.0); Lymphocytes # (A) 1.1 k/uL (1.0-4.8); Lymphocytes % (A) 15 %; MCH 33.2 pg (25.0-35.0); MCHC 32.7 g/dL (31.0-37.0); MCV 101.7 fL (80.0-100.0); Macrocytosis Slight; Mean Platelet Volume 8.3; Monocytes # (A) 0.7 k/uL (0-1.0); Monocytes % (A) 9 %; Neutrophils # (A) 5.6 k/uL (1.3-7.7); Neutrophils % (A) 75 %; Platelet Count 192 k/uL (150-450); RBC 3.51 m/uL (3.80-5.40); RDW 12.8 % (11.5-15.5); WBC 7.5 k/uL (3.8-10.6)
--- NOTE | 2020-10-06 11:36 | XR ---
EXAMINATION TYPE: XR chest 1V DATE OF EXAM: 10/06/2020 HISTORY: Shortness of breath. COMPARISON: 12/06/2011 TECHNIQUE: Single view of the chest is submitted. FINDINGS: Demonstrated are scattered senescent parenchymal change. There is no evidence for focal infiltrate. The heart is stable. Hilar and mediastinal structures are within normal limits. Degenerative changes are seen of the dorsal spine. IMPRESSION: 1. Chronic changes without evidence for acute pulmonary disease.
[2020-10-06 11:40] LABS: ALT 17 U/L (4-34); AST 32 U/L (14-36); African American GFR (CKD) >90 (>60 ml/min/1.73 sqM); Albumin 3.2 g/dL (3.5-5.0); Alkaline Phosphatase 66 U/L (38-126); Anion Gap 4 mmol/L; Blood Urea Nitrogen 18 mg/dL (7-17); Calcium 9.8 mg/dL (8.4-10.2); Carbon Dioxide 27 mmol/L (22-30); Chloride 105 mmol/L (98-107); Glucose 112 mg/dL (74-99); Non-African American GFR(CKD) >90 (>60 ml/min/1.73 sqM); Potassium 3.3 mmol/L (3.5-5.1); Sodium 136 mmol/L (137-145); Total Bilirubin 0.4 mg/dL (0.2-1.3); Total Protein 5.6 g/dL (6.3-8.2)
[2020-10-06 11:43] LABS: INR 0.9 (<1.2)
--- NOTE | 2020-10-06 12:00 | CT ---
EXAMINATION TYPE: CT shoulder LT wo con DATE OF EXAM: 10/06/2020 COMPARISON: None HISTORY: fractured humerus CT DLP: 329.[address] of the left shoulder with reconstruction imaging. TECHNIQUE: Unenhanced CT of the left shoulder was performed with bone and soft tissue window settings submitted in the axial coronal and sagittal planes FINDINGS: There is impacted and comminuted fractures involving the left humeral neck. Fracture compon ent extends into the greater tuberosity. Distal fracture component is displaced medially with overrid ing of the fracture component seen. No additional fractures are seen within the [id number]. Extens george soft tissue edema noted. IMPRESSION: 1. Impacted and comminuted fracture involving the left humeral neck extending into the greater tubero sity. Significant displacement with near overriding of the fracture components.
[2020-10-06 12:05] LABS: Partial Thromboplastin Time 20.7 sec (22.0-30.0)
[2020-10-06] MEDS: traMADol 50 MG TAB PO PRN (13:06)
[2020-10-06] MEDS: ACETAMINOPHEN TAB 325 MG TAB PO PRN (16:14)
[2020-10-06] MEDS ORDERED: ACETAMINOPHEN TAB 500 MG TAB PO PRN (17:05)
[2020-10-06] MEDS ORDERED: POTASSIUM CHLORIDE ER 20 MEQ TAB.ER PO STA (17:09)
--- NOTE | 2020-10-06 17:12 | P.CONS ---
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 Patient is not able to provide any history due to her baseline mental condition, plus she already received Tramadol. Upon calling the hospital over the phone he stated that she was using her walker, transitioning from the dining room to the living room when she fell forward, landing mostly on her left upper arm. She did not hit her head. The states she seemed to be doing pretty well so she did not get evaluated yesterday. Today he noticed that she wasn't using her left arm so he brought her to the ER, left arm x-ray showed a fractured humerus. Medical consult was called for preoperative clearance. According to her at baseline patient is able to ambulate around the house well but she cannot walk long distances. She uses a walker for ambulation which is limited due to her Parkinson disease and sciatica. No history of heart disease. Review of Systems Unobtainable from patient due to current mental status Past Medical History Past Medical History: COPD, Dementia, Eye Disorder, GERD/Reflux, Hearing Disorder / Deafness, Hyperlipidemia, Rheumatoid Arthritis (RA), Seizure Disorder, Thyroid Disorder Additional Past Medical History / Comment(s): O2 4L @ NIGHT. PARKISON/DEMENTIA. 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 VERY [place]. WILL FOLLOW SIMPLE INSTRUCTIONS. History of Any Multi-Drug Resistant Organisms: None Reported Past Surgical History: Cholecystectomy, Orthopedic Surgery Additional Past Surgical History / Comment(s): leonor. Ankle FX repair; Benign brain Blastoma; Deep Brain Stimulator implant, leg fx with repair/kenny placement 2012 Past Anesthesia/Blood Transfusion Reactions: No Reported Reaction, Motion Sickness Past Psychological History: Bipolar, Depression, Schizophrenia Smoking Status: Former smoker Past Alcohol Use History: None Reported Past Drug Use History: None Reported - Past Family History Mother Family Medical History: No Reported History, Coronary Artery Disease (CAD) Father Family Medical History: Cancer Additional Family Medical History / Comment(s): Father of lung cancer and had heart problems. He was a smoker and heavy drinker. Medications and Allergies Home Medications Medication Instructions Recorded Confirmed Type Baclofen 10 mg PO AC-BID 08/12/15 10/06/20 History Carbidopa-Levodopa 25-100 mg 0.5 tab PO DAILY 08/12/15 10/06/20 History [Sinemet 25-100] Erythromycin Ophth Oint [Romycin 1 applic BOTH EYES Q3H 08/12/15 10/06/20 His tory Ophth Oint] Fluticasone Nasal [place] [Flonase 1 spray EA NOSTRIL BID 08/12/15 10/06/20 Hi story Nasal [place]] Folic Acid 1 mg PO DAILY 08/12/15 10/06/20 History Ibuprofen [Motrin] 800 mg PO TID PRN 08/12/15 10/06/20 History Levothyroxine Sodium [Levoxyl] 112 mcg PO DAILY 08/12/15 10/06/20 History Loratadine [Claritin] 10 mg PO DAILY 08/12/15 10/06/20 History Meclizine [Antivert] 12.5 mg PO BID 08/12/15 10/06/20 History OXcarbazepine [Trileptal] 300 mg PO BID 08/12/15 10/06/20 History Omeprazole [PriLOSEC] 20 mg PO BID 08/12/15 10/06/20 History amantadine HCL [Symmetrel] 100 mg PO BID 08/12/15 10/06/20 History traZODone HCL [Desyrel] 200 mg PO HS 08/12/15 10/06/20 History Dorzolamide HCl [Trusopt 2%] 1 drop BOTH EYES BID 02/03/18 10/06/20 History Calcium Carbonate/Vitamin D3 2 tab PO DAILY 06/18/18 10/06/20 History [Calcium 600-Vit D3 400 Caplet] Latanoprost/Pf [Latanoprost 0.005% 1 drop BOTH EYES HS 06/18/18 10/06/20 History Eye Drop] Mirabegron [Myrbetriq] 50 mg PO DAILY 06/18/18 10/06/20 History Acetaminophen [Tylenol] 500 mg PO BID PRN 07/11/20 10/06/20 History Donepezil [Aricept] 10 mg PO HS 07/11/20 10/06/20 History LORazepam [Ativan] 0.5 mg PO BID 07/11/20 10/06/20 History Magnesium Oxide [Mag-Oxide] 400 mg PO BID 07/11/20 10/06/20 History Vortioxetine Hydrobromide 20 mg PO DAILY 07/11/20 10/06/20 History [Trintellix] busPIRone HCL 15 mg PO BID@0900,1400 07/11/20 10/06/20 History Albuterol Sulfate [Proair Hfa] 2 puff INHALATION RT-Q4H PRN 10/06/20 10/06/20 History Brimonidine Tartrate [Alphagan P 1 drop BOTH EYES BID 10/06/20 10/06/20 History 0.2% Ophth Soln] Divalproex ER [Depakote ER] 1,500 mg PO HS 10/06/20 10/06/20 History Docusate [Colace] 100 mg PO BID PRN 10/06/20 10/06/20 History Loperamide [Imodium] 2 mg PO DAILY PRN 10/06/20 10/06/20 History Lurasidone [Latuda] 80 mg PO PC-SUPPER 10/06/20 10/06/20 History OXcarbazepine [Trileptal] 150 mg PO BID 10/06/20 10/06/20 History Refresh Liquigel 1% Liquid Gel 1 drop BOTH EYES Q3H 10/06/20 10/06/20 History Drops Tofacitinib Citrate [Xeljanz Xr] 11 mg PO DAILY 10/06/20 10/06/20 History busPIRone HCL 30 mg PO HS 10/06/20 10/06/20 History Allergies Allergy/AdvReac Type Severity Reaction Status Date / Time amoxicillin trihydrate Allergy Severe Anaphylaxis Verified 10/06/20 12:35 [From Augmentin] erythromycin base Allergy Severe Anaphylaxis Verified 10/06/20 12:35 Macrolide Antibiotics Allergy Severe Anaphylaxis Verified 10/06/20 12:35 neomycin Allergy Severe Anaphylaxis Verified 10/06/20 12:35 potassium clavulanate Allergy Severe Anaphylaxis Verified 10/06/20 12:35 [From Augmentin] prednisone Allergy INCREASED Verified 10/06/20 12:35 EYE PRESSURE Physical Exam Vitals: Vital Signs Temp Pulse Resp BP Pulse Ox 10/06/20 09:49 98.5 F 90 18 154/71 98 Intake and Output 10/05/20 10/06/20 10/06/20 22:59 06:59 14:59 Other: Weight 54.431 kg Constitutional: No acute distress, conversant, pleasant Eyes:Anicteric sclerae, moist conjunctiva, no lid-lag, PERRLA, ENMT: Oropharynx clear, no erythema, exudates Neck: Supple, FROM, no masses, or JVD, No carotid bruits, No thyromegaly Lungs: Clear to auscultation, Clear to percussion, Normal respiratory effort, no accessory muscle use Cardiovascular: Heart regular in rate and rhythm, No murmurs, gallops, or rubs, No peripheral edema Abdominal: Soft, Nontender, no guarding, rebound or rigidity, Normoactive bowel sounds, No hepatomegaly, No splenomegaly, No palpable mass Skin: Normal temperature, tone, texture, turgor, no induration, No subcutaneous nodules, No rash, lesions, No ulcers Extremities: Left upper extremity swollen, sling in place No digital cyanosis, No clubbing, Pedal pulses intact and symmetrical, Radial pulses intact and symmetrical, No calf tenderness Neuro: Gen. weakness Results CBC & Chem 7: 10/06/20 11:17 10/06/20 11:17 Labs: Abnormal Lab Results - Last 24 Hours (Table) 10/06/20 10/06/20 10/06/20 Range/Units 11:17 11:17 11:17 RBC 3.51 L (3.80-5.40) m/uL MCV 101.7 H (80.0-100.0) fL APTT 20.7 L (22.0-30.0) sec Sodium 136 L (137-145) mmol/L Potassium 3.3 L (3.5-5.1) mmol/L BUN 18 H (7-17) mg/dL Creatinine 0.33 L (0.52-1.04) mg/dL Glucose 112 H (74-99) mg/dL Total Protein 5.6 L (6.3-8.2) g/dL Albumin 3.2 L (3.5-5.0) g/dL Assessment and Plan Plan: Preoperative clearance Her revised cardiac risk index score indicates 3.4% risk of cardiac complication, which is low. Patient is going for moderate risk surgery. I think it is reasonable to proceed with the surgery. EKG and CXR ok Left humoral fracture Tramadol for pain prn Surgery to operate in am COPD on nighttime oxygen, Parkinson Dementia, GERD/Reflux, Deafness, Hyperlipidemia, Rheumatoid Arthritis (RA), Seizure Disorder, All stable resume meds Patient admitted to inpatient, expected length of stay more than two midnights.
--- NOTE | 2020-10-06 18:01 | P.HPOR ---
History of Present Illness H&P Date: 10/06/20 Chief Complaint: Left shoulder pain She presents to the emergency department today after a fall yesterday, sustaining injury to her left arm. Her brother is present at bedside. He is her guardian and rug weaver. He states that she was ambulating with her walker and tripped over the edge of the carpet, landing on her left side. On exam and x-ray in the emergency department she was found to have a displaced humeral neck fracture. The patient has a past medical history of Parkinson's disease, schizophrenia, bipolar disorder and hearing impairment. Orthopedics was consulted for evaluation and treatment. Past Medical History Past Medical History: COPD, Dementia, Eye Disorder, GERD/Reflux, Hearing Disorder / Deafness, Hyperlipidemia, Rheumatoid Arthritis (RA), Seizure Disorder, Thyroid Disorder Additional Past Medical History / Comment(s): O2 4L @ NIGHT. PARKISON/DEMENTIA. 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 [place]. WILL FOLLOW SIMPLE INSTRUCTIONS. History of Any Multi-Drug Resistant Organisms: None Reported Past Surgical History: Cholecystectomy, Orthopedic Surgery Additional Past Surgical History / Comment(s): leonor. Ankle FX repair; Benign brain Blastoma; Deep Brain Stimulator implant, leg fx with repair/kenny placement 2012 Past Anesthesia/Blood Transfusion Reactions: No Reported Reaction, Motion Sickness Past Psychological History: Bipolar, Depression, Schizophrenia Smoking Status: Former smoker Past Alcohol Use History: None Reported Past Drug Use History: None Reported - Past Family History Mother Family Medical History: No Reported History, Coronary Artery Disease (CAD) Additional Family Medical History / Comment(s): Mother had "electrical problem" with her heart. She needed a pacemaker but never had one placed. Father Family Medical History: Cancer Additional Family Medical History / Comment(s): Father of lung cancer and had heart problems. He was a smoker and heavy drinker. Medications and Allergies Home Medications Medication Instructions Recorded Confirmed Type Baclofen 10 mg PO AC-BID 08/12/15 10/06/20 History Carbidopa-Levodopa 25-100 mg 0.5 tab PO DAILY 08/12/15 10/06/20 History [Sinemet 25-100] Erythromycin Ophth Oint [Romycin 1 applic BOTH EYES Q3H 08/12/15 10/06/20 History Ophth Oint] Fluticasone Nasal [place] [Flonase 1 spray EA NOSTRIL BID 08/12/15 10/06/20 History Nasal [place]] Folic Acid 1 mg PO DAILY 08/12/15 10/06/20 History Ibuprofen [Motrin] 800 mg PO TID PRN 08/12/15 10/06/20 History Levothyroxine Sodium [Levoxyl] 112 mcg PO DAILY 08/12/15 10/06/20 History Loratadine [Claritin] 10 mg PO DAILY 08/12/15 10/06/20 History Meclizine [Antivert] 12.5 mg PO BID 08/12/15 10/06/20 History OXcarbazepine [Trileptal] 300 mg PO BID 08/12/15 10/06/20 History Omeprazole [PriLOSEC] 20 mg PO BID 08/12/15 10/06/20 History amantadine HCL [Symmetrel] 100 mg PO BID 08/12/15 10/06/20 History traZODone HCL [Desyrel] 200 mg PO HS 08/12/15 10/06/20 History Dorzolamide HCl [Trusopt 2%] 1 drop BOTH EYES BID 02/03/18 10/06/20 History Calcium Carbonate/Vitamin D3 2 tab PO DAILY 06/18/18 10/06/20 History [Calcium 600-Vit D3 400 Caplet] Latanoprost/Pf [Latanoprost 0.005% 1 drop BOTH EYES HS 06/18/18 10/06/20 History Eye Drop] Mirabegron [Myrbetriq] 50 mg PO DAILY 06/18/18 10/06/20 History Acetaminophen [Tylenol] 500 mg PO BID PRN 07/11/20 10/06/20 History Donepezil [Aricept] 10 mg PO HS 07/11/20 10/06/20 History LORazepam [Ativan] 0.5 mg PO BID 07/11/20 10/06/20 History Magnesium Oxide [Mag-Oxide] 400 mg PO BID 07/11/20 10/06/20 History Vortioxetine Hydrobromide 20 mg PO DAILY 07/11/20 10/06/20 History [Trintellix] busPIRone HCL 15 mg PO BID@0900,1400 07/11/20 10/06/20 History Albuterol Sulfate [Proair Hfa] 2 puff INHALATION RT-Q4H PRN 10/06/20 10/06/20 History Brimonidine Tartrate [Alphagan P 1 drop BOTH EYES BID 10/06/20 10/06/20 History 0.2% Ophth Soln] Divalproex ER [Depakote ER] 1,500 mg PO HS 10/06/20 10/06/20 History Docusate [Colace] 100 mg PO BID PRN 10/06/20 10/06/20 History Loperamide [Imodium] 2 mg PO DAILY PRN 10/06/20 10/06/20 History Lurasidone [Latuda] 80 mg PO PC-SUPPER 10/06/20 10/06/20 History OXcarbazepine [Trileptal] 150 mg PO BID 10/06/20 10/06/20 History Refresh Liquigel 1% Liquid Gel 1 drop BOTH EYES Q3H 10/06/20 10/06/20 History Drops Tofacitinib Citrate [Xeljanz Xr] 11 mg PO DAILY 10/06/20 10/06/20 History busPIRone HCL 30 mg PO HS 10/06/20 10/06/20 History Allergies Allergy/AdvReac Type Severity Reaction Status Date / Time amoxicillin trihydrate Allergy Severe Anaphylaxis Verified 10/06/20 12:35 [From Augmentin] erythromycin base Allergy Severe Anaphylaxis Verified 10/06/20 12:35 Macrolide Antibiotics Allergy Severe Anaphylaxis Verified 10/06/20 12:35 neomycin Allergy Severe Anaphylaxis Verified 10/06/20 12:35 potassium clavulanate Allergy Severe Anaphylaxis Verified 10/06/20 12:35 [From Augmentin] prednisone Allergy INCREASED Verified 10/06/20 12:35 EYE PRESSURE Physical Examination This is a 59-year-old female in no acute distress. She has significant hearing impairment. Her left eye has been surgically closed. There is no tenderness to palpation about the cervical spine or paraspinal musculature. Exam of the upper extremities reveals swelling and ecchymosis about the left shoulder. She has fairly good elbow, wrist and finger motion bilaterally. Neurovascular status to the upper extremities is intact. Exam of the lower extremities reveals no obvious deformity. She can lift each leg off the bed independently. No hip pain or irritability with internal/external rotation. Full foot and ankle motion bilaterally. Neurovascular status to the lower extremities is intact. Results X-rays of the left shoulder reveal a displaced humeral neck fracture. The humeral head is located within the glenoid. CT scan of the left shoulder is performed which reveals some comminution and severe osteopenia to the humeral head. Humeral head is located in the glenoid. Significant displacement of the humeral shaft. - Labs Labs: Abnormal Lab Results - Last 24 Hours (Table) 10/06/20 10/06/20 10/06/20 Range/Units 11:17 11:17 11:17 RBC 3.51 L (3.80-5.40) m/uL MCV 101.7 H (80.0-100.0) fL APTT 20.7 L (22.0-30.0) sec Sodium 136 L (137-145) mmol/L Potassium 3.3 L (3.5-5.1) mmol/L BUN 18 H (7-17) mg/dL Creatinine 0.33 L (0.52-1.04) mg/dL Glucose 112 H (74-99) mg/dL Total Protein 5.6 L (6.3-8.2) g/dL Albumin 3.2 L (3.5-5.0) g/dL H & H 10/06/20 Range/Units 11:17 Hgb 11.6 (11.4-16.0) gm/dL Hct 35.6 (34.0-46.0) % Coagulation 10/06/20 Range/Units 11:17 INR 0.9 (<1.2) Result Diagrams: 10/06/20 11:17 10/06/20 11:17 Assessment and Plan (1) Fracture of humeral head, left, closed Current Visit: Yes Status: Acute Code(s): S42.292A - OTH DISP FX OF UPPER END OF LEFT HUMERUS, INIT FOR CLOS FX SNOMED Code(s): 677908449 (2) Displaced fracture of surgical neck of humerus Current Visit: Yes Status: Acute Code(s): S42.213A - UNSP DISP FX OF SURGICAL NECK OF UNSP HUMERUS, INIT SNOMED Code(s): 516570792 (3) Parkinsons disease Current Visit: Yes Status: Acute Code(s): G20 - PARKINSON'S DISEASE SNOMED Code(s): 76543122 (4) Hearing impairment Current Visit: Yes Status: Acute Code(s): H91.90 - UNSPECIFIED HEARING LOSS, UNSPECIFIED EAR SNOMED Code(s): 61592502 Plan: The clinical and radiographic findings are discussed with the patient and her brother. With her poor bone quality is recommended that we attempt to treat this fracture conservatively with a hanging arm cast. She is to remain upright and at least 45 angle to allow the arm to dangle. She will most likely require inpatient rehabilitation placement due to the fact that she will not be able to use her walker. We will re-x-ray in one week to assess fracture alignment.
[2020-10-06] MEDS: BACLOFEN 10 MG TAB PO SCH (18:19)
[2020-10-06] MEDS ORDERED: LURASIDONE 80 MG TAB PO SCH (18:30)
[2020-10-06] MEDS: BRIMONIDINE TARTRATE 0.2% DROPS 5 ML BTL BOTH EYES SCH (20:14)
[2020-10-06] MEDS: DORZOLAMIDE HCL 2% DROPS 10 ML BTL BOTH EYES SCH (20:15)
[2020-10-06] MEDS: FLUTICASONE 50MCG/SPRAY NASAL 16GM EA NOSTRIL SCH (20:15)
[2020-10-06] MEDS: LORazepam 0.5 MG TAB PO SCH (20:19)
[2020-10-06] MEDS: OXcarbazepine 300 MG TAB PO SCH (20:20)
[2020-10-06] MEDS: PANTOPRAZOLE 40 MG TABLET PO SCH (20:20)
[2020-10-06] MEDS: MAGNESIUM OXIDE 400 MG TAB PO SCH (20:20)
[2020-10-06] MEDS: OXcarbazepine 150 MG TAB PO SCH (20:20)
[2020-10-06] MEDS ORDERED: traZODone HCL 100 MG TAB PO SCH (21:00)
[2020-10-06] MEDS ORDERED: busPIRone HCl 10 MG TAB PO SCH (21:00)
[2020-10-06] MEDS ORDERED: DONEPEZIL 10 MG TAB PO SCH (21:00)
[2020-10-06] MEDS ORDERED: DIVALPROEX ER 500 MG TAB.ER.24H PO SCH (21:00)
[2020-10-06] MEDS ORDERED: LATANOPROST 0.005% OPHTH DROPS 2.5 ML BTL BOTH EYES SCH (21:00)
[2020-10-07] MEDS: traMADol 50 MG TAB PO PRN (02:54)
[2020-10-07] MEDS: IBUPROFEN 400 MG TAB PO PRN ×2 (06:08→13:49)
[2020-10-07] MEDS ORDERED: LEVOTHYROXINE 112 MCG TAB PO SCH (06:30)
[2020-10-07] MEDS ORDERED: CARBIDOPA-LEVODOPA 25-100 MG 1 EACH TAB PO SCH (09:00)
[2020-10-07] MEDS ORDERED: LORATADINE 10 MG TAB PO SCH (09:00)
[2020-10-07] MEDS ORDERED: CALCIUM CARB-VIT D 500 MG-5 MCG TAB PO SCH (09:00)
[2020-10-07] MEDS ORDERED: NON FORMULARY DRUG (Mirabegron [Myrbetriq] 50 MG Tab.Er.24h) PO SCH (09:00)
[2020-10-07] MEDS ORDERED: VORTIOXETINE HYDROBROMIDE 20 MG TABLET PO SCH (09:00)
[2020-10-07] MEDS ORDERED: FOLIC ACID 1 MG TAB PO SCH (09:00)
--- NOTE | 2020-10-07 09:05 | P.DS ---
Providers Date of admission: 10/06/20 12:23 Expected date of discharge: 10/07/20 Attending physician: Kodak Buchanan Consults: 10/06/20 12:18 Consult Physician Urgent Consulting Provider: Kimmie Maldonado Consult Reason/Comments: medical management, left humerus fracture Do you want consulting provider notified?: Already Contacted Primary care physician: Manuel Hurtado - Discharge Diagnosis(es) (1) Fracture of humeral head, left, closed Current Visit: Yes Status: Acute (2) Displaced fracture of surgical neck of humerus Current Visit: Yes Status: Acute (3) Parkinsons disease Current Visit: Yes Status: Acute (4) Hearing impairment Current Visit: Yes Status: Acute Hospital Course: She presents to the emergency department today after a fall on 10/05/2020, sustaining injury to her left arm. Her brother is present at bedside. He is her guardian and manager process improvement. He states that she was ambulating with her walker and tripped over the edge of the carpet, landing on her left side. On exam and x-ray in the emergency department she was found to have a displaced humeral neck fracture. The patient has a past medical history of Parkinson's disease, schizophrenia, bipolar disorder and hearing impairment. The patient was admitted to our service for further evaluation and pain management. It is recommended that she be transferred to inpatient rehab. The patient will have difficulty with ADLs and ambulation. The patient typically uses a walker for ambulation due to her Parkinson's. She may be discharged to inpatient rehab today if cleared medically. Please see med rec for accurate list of home medications. Patient Condition at Discharge: Stable Plan - Discharge Summary Discharge Rx Participant: No New Discharge Prescriptions: No Action Erythromycin Ophth Oint [Romycin Ophth Oint] 1 applic BOTH EYES Q3H Omeprazole [PriLOSEC] 20 mg PO BID Loratadine [Claritin] 10 mg PO DAILY Fluticasone Nasal [place] [Flonase Nasal [place]] 1 spray EA NOSTRIL BID Levothyroxine Sodium [Levoxyl] 112 mcg PO DAILY Ibuprofen [Motrin] 800 mg PO TID PRN PRN Reason: Pain Carbidopa-Levodopa 25-100 mg [Sinemet 25-100] 0.5 tab PO DAILY amantadine HCL [Symmetrel] 100 mg PO BID OXcarbazepine [Trileptal] 300 mg PO BID Meclizine [Antivert] 12.5 mg PO BID Folic Acid 1 mg PO DAILY Baclofen 10 mg PO AC-BID traZODone HCL [Desyrel] 200 mg PO HS Dorzolamide HCl [Trusopt 2%] 1 drop BOTH EYES BID Latanoprost/Pf [Latanoprost 0.005% Eye Drop] 1 drop BOTH EYES HS Mirabegron [Myrbetriq] 50 mg PO DAILY Calcium Carbonate/Vitamin D3 [Calcium 600-Vit D3 400 Caplet] 2 tab PO DAILY Vortioxetine Hydrobromide [Trintellix] 20 mg PO DAILY Acetaminophen [Tylenol] 500 mg PO BID PRN PRN Reason: Fever And/ Or Pain busPIRone HCL 15 mg PO BID@0900,1400 Donepezil [Aricept] 10 mg PO HS LORazepam [Ativan] 0.5 mg PO BID Magnesium Oxide [Mag-Oxide] 400 mg PO BID Refresh Liquigel 1% Liquid Gel Drops 1 drop BOTH EYES Q3H OXcarbazepine [Trileptal] 150 mg PO BID Loperamide [Imodium] 2 mg PO DAILY PRN PRN Reason: Diarrhea Docusate [Colace] 100 mg PO BID PRN PRN Reason: Constipation Brimonidine Tartrate [Alphagan P 0.2% Ophth Soln] 1 drop BOTH EYES BID Tofacitinib Citrate [Xeljanz Xr] 11 mg PO DAILY Albuterol Sulfate [Proair Hfa] 2 puff INHALATION RT-Q4H PRN PRN Reason: Shortness Of Breath/Cough Lurasidone [Latuda] 80 mg PO PC-SUPPER busPIRone HCL 30 mg PO HS Divalproex ER [Depakote ER] 1,500 mg PO HS Discharge Medication List Baclofen 10 mg PO AC-BID 08/12/15 [History] Carbidopa-Levodopa 25-100 mg [Sinemet 25-100] 0.5 tab PO DAILY 08/12/15 [History] Erythromycin Ophth Oint [Romycin Ophth Oint] 1 applic BOTH EYES Q3H 08/12/15 [History] Fluticasone Nasal [place] [Flonase Nasal [place]] 1 spray EA NOSTRIL BID 08/12/15 [History] Folic Acid 1 mg PO DAILY 08/12/15 [History] Ibuprofen [Motrin] 800 mg PO TID PRN 08/12/15 [History] Levothyroxine Sodium [Levoxyl] 112 mcg PO DAILY 08/12/15 [History] Loratadine [Claritin] 10 mg PO DAILY 08/12/15 [History] Meclizine [Antivert] 12.5 mg PO BID 08/12/15 [History] OXcarbazepine [Trileptal] 300 mg PO BID 08/12/15 [History] Omeprazole [PriLOSEC] 20 mg PO BID 08/12/15 [History] amantadine HCL [Symmetrel] 100 mg PO BID 08/12/15 [History] traZODone HCL [Desyrel] 200 mg PO HS 08/12/15 [History] Dorzolamide HCl [Trusopt 2%] 1 drop BOTH EYES BID 02/03/18 [History] Calcium Carbonate/Vitamin D3 [Calcium 600-Vit D3 400 Caplet] 2 tab PO DAILY 06/18/18 [History] Latanoprost/Pf [Latanoprost 0.005% Eye Drop] 1 drop BOTH EYES HS 06/18/18 [ History] Mirabegron [Myrbetriq] 50 mg PO DAILY 06/18/18 [History] Acetaminophen [Tylenol] 500 mg PO BID PRN 07/11/20 [History] Donepezil [Aricept] 10 mg PO HS 07/11/20 [History] LORazepam [Ativan] 0.5 mg PO BID 07/11/20 [History] Magnesium Oxide [Mag-Oxide] 400 mg PO BID 07/11/20 [History] Vortioxetine Hydrobromide [Trintellix] 20 mg PO DAILY 07/11/20 [History] busPIRone HCL 15 mg PO BID@0900,1400 07/11/20 [History] Albuterol Sulfate [Proair Hfa] 2 puff INHALATION RT-Q4H PRN 10/06/20 [History] Brimonidine Tartrate [Alphagan P 0.2% Oph Soln] 1 drop BOTH EYES BID 10/06/20 [History] Divalproex ER [Depakote ER] 1,500 mg PO HS 10/06/20 [History] Docusate [Colace] 100 mg PO BID PRN 10/06/20 [History] Loperamide [Imodium] 2 mg PO DAILY PRN 10/06/20 [History] Lurasidone [Latuda] 80 mg PO PC-SUPPER 10/06/20 [History] OXcarbazepine [Trileptal] 150 mg PO BID 10/06/20 [History] Refresh Liquigel 1% Liquid Gel Drops 1 drop BOTH EYES Q3H 10/06/20 [History] Tofacitinib Citrate [Xeljanz Xr] 11 mg PO DAILY 10/06/20 [History] busPIRone HCL 30 mg PO HS 10/06/20 [History] Follow up Appointment(s)/Referral(s): Manuel Hurtado MD [Primary Care Provider] - 1-2 days Kodak Buchanan MD [STAFF PHYSICIAN] - 1 Week Activity/Diet/Wound Care/Special Instructions: Routine cast care left upper extremity. Patient must be kept elevated to at least a 45 angle to allow arm today angle. Do not support arm with pillow. I recommended Tylenol or ibuprofen as needed for pain. Discharge Disposition: TRANSFER TO SNF/ECF
[2020-10-07] MEDS: ACETAMINOPHEN TAB 325 MG TAB PO PRN (09:58)
[2020-10-07] MEDS: LORazepam 0.5 MG TAB PO SCH (09:58)
[2020-10-07] MEDS: MAGNESIUM OXIDE 400 MG TAB PO SCH (09:59)
[2020-10-07] MEDS: BACLOFEN 10 MG TAB PO SCH ×2 (09:59→13:49)
[2020-10-07] MEDS: busPIRone HCl 5 MG TAB PO SCH ×2 (09:59→13:49)
[2020-10-07] MEDS: FLUTICASONE 50MCG/SPRAY NASAL 16GM EA NOSTRIL SCH (10:00)
[2020-10-07] MEDS: BRIMONIDINE TARTRATE 0.2% DROPS 5 ML BTL BOTH EYES SCH (10:00)
[2020-10-07] MEDS: DORZOLAMIDE HCL 2% DROPS 10 ML BTL BOTH EYES SCH (10:00)
[2020-10-07] MEDS: OXcarbazepine 300 MG TAB PO SCH (10:01)
[2020-10-07] MEDS: PANTOPRAZOLE 40 MG TABLET PO SCH (10:01)
[2020-10-07] MEDS: OXcarbazepine 150 MG TAB PO SCH (10:02)
[2020-10-07 11:52] LABS: Basophils % (A) 0 %; Eosinophils # (A) 0.1 k/uL (0-0.7); Eosinophils % (A) 1 %; HGB 11.4 gm/dL (11.4-16.0); Lymphocytes # (A) 1.6 k/uL (1.0-4.8); Lymphocytes % (A) 25 %; MCH 34.5 pg (25.0-35.0); MCHC 33.7 g/dL (31.0-37.0); MCV 102.5 fL (80.0-100.0); Mean Platelet Volume 7.8; Monocytes # (A) 0.7 k/uL (0-1.0); Monocytes % (A) 11 %; Neutrophils # (A) 3.8 k/uL (1.3-7.7); Neutrophils % (A) 61 %; Platelet Count 164 k/uL (150-450); RBC 3.32 m/uL (3.80-5.40); RDW 12.1 % (11.5-15.5); WBC 6.2 k/uL (3.8-10.6)
[2020-10-07 11:57] LABS: ALT 23 U/L (4-34); AST 29 U/L (14-36); African American GFR (CKD) >90 (>60 ml/min/1.73 sqM); Albumin 2.9 g/dL (3.5-5.0); Albumin/Globulin Ratio 1.3; Alkaline Phosphatase 61 U/L (38-126); Anion Gap 4 mmol/L; Blood Urea Nitrogen 12 mg/dL (7-17); Calcium 8.9 mg/dL (8.4-10.2); Carbon Dioxide 28 mmol/L (22-30); Chloride 103 mmol/L (98-107); Globulin 2.3 g/dL; Glucose 112 mg/dL (74-99); Magnesium 1.6 mg/dL (1.6-2.3); Non-African American GFR(CKD) >90 (>60 ml/min/1.73 sqM); Potassium 4.1 mmol/L (3.5-5.1); Sodium 135 mmol/L (137-145); Total Bilirubin 0.2 mg/dL (0.2-1.3); Total Protein 5.2 g/dL (6.3-8.2)
[2020-10-07 13:47] LABS: Appearance,Urine Clear (Clear); Bilirubin,Urine Negative (Negative); Blood,Urine Negative (Negative); Color,Urine Yellow; Glucose,Urine (UA) Negative (Negative); Ketones,Urine Trace (Negative); Leukocyte Esterase,Urine Moderate (Negative); Mucus,Urine Moderate /hpf; Nitrite,Urine Negative (Negative); Protein,Urine 1+ (Negative); RBC,Urine 1 /hpf (0-5); Specific Gravity,Urine 1.028 (1.001-1.035); Squamous Epithelial Cell,Urine 2 /hpf (0-4); Urobilinogen,Urine <2.0 mg/dL (<2.0); WBC,Urine 10 /hpf (0-5)
--- NOTE | 2020-10-07 14:56 | P.PN ---
Subjective Progress Note Date: 10/07/20 Principal diagnosis: Fall Patient is more awake and alert today compared to yesterday. He is not currently able to answer questions because she is very hard of hearing and she does not have her hearing aid. She does not look in distress or pain. Had a slight fever of 100.6 last night. Objective - Vital Signs Vital signs: Vital Signs Temp 98.3 F 10/07/20 08:00 Pulse 89 10/07/20 08:00 Resp 15 10/07/20 08:00 BP 155/85 10/07/20 08:00 Pulse Ox 93 L 10/07/20 08:00 Intake & Output 10/06/20 10/07/20 10/07/20 18:59 06:59 18:59 Intake Total 50 600 Balance 50 600 Weight 54.431 kg Intake: Oral 50 600 Other: Voiding Method Diaper Diaper Incontinent Incontinent # Voids 2 4 3 - Exam Constitutional: No acute distress, conversant, pleasant Eyes:Anicteric sclerae, moist conjunctiva, no lid-lag, PERRLA, ENMT: Oropharynx clear, no erythema, exudates Neck: Supple, FROM, no masses, or JVD, No carotid bruits, No thyromegaly Lungs: Clear to auscultation, Clear to percussion, Normal respiratory effort, no accessory muscle use Cardiovascular: Heart regular in rate and rhythm, No murmurs, gallops, or rubs, No peripheral edema Abdominal: Soft, Nontender, no guarding, rebound or rigidity, Normoactive bowel sounds, No hepatomegaly, No splenomegaly, No palpable mass Skin: Normal temperature, tone, texture, turgor, no induration, No subcutaneous nodules, No rash, lesions, No ulcers Extremities: Left upper extremity swollen, sling in place No digital cyanosis, No clubbing, Pedal pulses intact and symmetrical, Radial pulses intact and symmetrical, No calf tenderness Neuro: Gen. weakness - Labs CBC & Chem 7: 10/07/20 11:24 10/07/20 11:24 Labs: Abnormal Lab Results - Last 24 Hours (Table) 10/07/20 10/07/20 10/07/20 Range/Units 11:24 11:24 13:39 RBC 3.32 L (3.80-5.40) m/uL MCV 102.5 H (80.0-100.0) fL Sodium 135 L (137-145) mmol/L Creatinine 0.40 L (0.52-1.04) mg/dL Glucose 112 H (74-99) mg/dL Total Protein 5.2 L (6.3-8.2) g/dL Albumin 2.9 L (3.5-5.0) g/dL Urine Protein 1+ H (Negative) Urine Ketones Trace H (Negative) Ur Leukocyte Esterase Moderate H (Negative) Urine WBC 10 H (0-5) /hpf Urine Mucus Moderate H (None) /hpf Assessment and Plan Plan: Left humoral fracture Tramadol for pain prn Surgery opted for conservative management Fever, likely secondary to UTI Start Bactrim double strength 1 tablet twice a day COPD on nighttime oxygen, Parkinson Dementia, GERD/Reflux, Deafness, Hyperlipidemia, Rheumatoid Arthritis (RA), Seizure Disorder, All stable resume meds Patient is cleared from the medical standpoint for discharge to rehab.
[2020-10-07 15:14] VITALS: RESP 16; TEMP 97.9
== END 2020-10-07 17:51 ==
LOC: EC 09:48 → 4SSUR 12:23 → INTOOBSV 12:23 → 4SSUR 13:28 → UNDODISIN 10-07 17:51
PROVIDERS: ADMIT Orthopaedic Surgery; ATTEND Orthopaedic Surgery
DX: S42.211A Unspecified displaced fracture of surgical neck of right humerus, initial encounter for closed fracture (principal); G20 Parkinson's disease; F02.80 Dementia in other diseases classified elsewhere, unspecified severity, without behavioral disturbance, psychotic disturbance, mood disturbance, and anxiety; R50.9 Fever, unspecified; M85.812 Other specified disorders of bone density and structure, left shoulder; H91.90 Unspecified hearing loss, unspecified ear; E78.5 Hyperlipidemia, unspecified; G40.909 Epilepsy, unspecified, not intractable, without status epilepticus; J44.9 Chronic obstructive pulmonary disease, unspecified; M06.9 Rheumatoid arthritis, unspecified; H40.9 Unspecified glaucoma; K21.9 Gastro-esophageal reflux disease without esophagitis; E07.9 Disorder of thyroid, unspecified; K90.0 Celiac disease; E73.9 Lactose intolerance, unspecified; D33.3 Benign neoplasm of cranial nerves; F20.9 Schizophrenia, unspecified; F31.9 Bipolar disorder, unspecified; F60.3 Borderline personality disorder; M54.30 Sciatica, unspecified side; H04.129 Dry eye syndrome of unspecified lacrimal gland; R13.10 Dysphagia, unspecified; Z20.822 Contact with and (suspected) exposure to COVID-19; Z79.890 Hormone replacement therapy; Z79.899 Other long term (current) drug therapy; Z88.0 Allergy status to penicillin; Z88.1 Allergy status to other antibiotic agents; Z88.8 Allergy status to other drugs, medicaments and biological substances; Z86.011 Personal history of benign neoplasm of the brain; Z90.49 Acquired absence of other specified parts of digestive tract; Z87.891 Personal history of nicotine dependence; Z87.81 Personal history of (healed) traumatic fracture; Z96.82 Presence of neurostimulator; W01.0XXA Fall on same level from slipping, tripping and stumbling without subsequent striking against object, initial encounter; Y92.001 Dining room of unspecified non-institutional (private) residence as the place of occurrence of the external cause; Z82.49 Family history of ischemic heart disease and other diseases of the circulatory system; Z80.1 Family history of malignant neoplasm of trachea, bronchus and lung
CPT/HCPCS: 99285; 36415; 93005; 97162; 97166; 80053 ×2; 83735; 85025 ×2; 85610; 85730; 81001; 87635; 71045; 73200; G0378 ×2